=== PATIENT | male | born 1945 | race Caucasian/White ===

== ENCOUNTER 2019-03-05 16:16 | Inpatient (IN) ==
[2019-03-05] MEDS ORDERED: Ondansetron 4 MG/2 ML VIAL IVP PRN (17:19)
[2019-03-05] MEDS ORDERED: Naloxone 0.4 MG/ML INJ IVP PRN (17:19)
[2019-03-05 19:49] LABS: BUN/Creatinine Ratio 13 (6-26); Blood Urea Nitrogen 10 mg/dL (8-23); Carbon Dioxide 24 mEq/L (23-29); Chloride 104 mEq/L (98-107); Glucose 109 mg/dL (70-105); Osmolality,Calculated 280 (280-300); Potassium 3.7 mEq/L (3.5-5.1); Sodium 135 mEq/L (136-145); eGFR For African Americans > 60 (> 60); eGFR For Non-African Americans > 60 (> 60)
[2019-03-05] MEDS: Piperacillin/Tazobactam 3.375 GM in 0.9 % Sodium Chloride Mini Bag 100 ML IVPB SCH (19:56)
[2019-03-05] MEDS: *HR* HYDROcodone/Acet 5/325 mg TABLET PO PRN (23:39)
[2019-03-06] MEDS: Piperacillin/Tazobactam 3.375 GM in 0.9 % Sodium Chloride Mini Bag 100 ML IVPB SCH ×3 (01:04→17:00)
[2019-03-06] MEDS ORDERED: Vancomycin 1,750 MG in 0.9 % Sodium Chloride 250 ML IVPB SCH (05:00)
[2019-03-06 05:01] LABS: Hematocrit 39.9 % (37.5-50.1); Hemoglobin 13.4 g/dL (12.9-16.9); Mean Corpuscular HGB Conc 33.6 g/dL (31.6-35.5); Mean Corpuscular Hemoglobin 32.1 pg (28.0-33.3); Mean Corpuscular Volume 95.7 fL (83.0-100.0); Mean Platelet Volume 9.6 fL (9.4-12.4); Platelet Count 238 K/mcL (140-400); Red Blood Count 4.17 M/mcL (4.19-5.50); Red Cell Distribution Width 13.5 % (11.5-14.5); White Blood Count 7.4 K/mcL (4.3-11.1)
[2019-03-06 05:20] LABS: BUN/Creatinine Ratio 12 (6-26); Blood Urea Nitrogen 12 mg/dL (8-23); Calcium 8.4 mg/dL (8.6-10.3); Carbon Dioxide 24 mEq/L (23-29); Chloride 101 mEq/L (98-107); Glucose 111 mg/dL (70-105); Magnesium 1.9 mg/dL (1.6-2.6); Osmolality,Calculated 284 (280-300); Potassium 3.5 mEq/L (3.5-5.1); Sodium 137 mEq/L (136-145); eGFR For African Americans > 60 (> 60); eGFR For Non-African Americans > 60 (> 60)
[2019-03-06] MEDS: Acetaminophen 325 MG TABLET PO PRN ×3 (05:24→17:00)
[2019-03-07] MEDS: Piperacillin/Tazobactam 3.375 GM in 0.9 % Sodium Chloride Mini Bag 100 ML IVPB SCH ×4 (00:23→23:31)
[2019-03-07] MEDS: *HR* HYDROcodone/Acet 5/325 mg TABLET PO PRN (00:32)
[2019-03-07 03:57] LABS: Uric Acid 6.6 mg/dL (2.3-7.6)
[2019-03-07 03:58] LABS: BUN/Creatinine Ratio 13 (6-26); Blood Urea Nitrogen 11 mg/dL (8-23); Calcium 8.7 mg/dL (8.6-10.3); Carbon Dioxide 23 mEq/L (23-29); Chloride 103 mEq/L (98-107); Glucose 115 mg/dL (70-105); Osmolality,Calculated 286 (280-300); Potassium 3.7 mEq/L (3.5-5.1); Sodium 138 mEq/L (136-145); eGFR For African Americans > 60 (> 60); eGFR For Non-African Americans > 60 (> 60)
[2019-03-07] MEDS ORDERED: Simethicone 80 MG TAB.CHEW PO PRN (07:40)
[2019-03-07] MEDS: Aspirin Enteric Coated 81 MG Tablet PO SCH (10:00)
[2019-03-07] MEDS: Acetaminophen 325 MG TABLET PO PRN (20:27)
[2019-03-08] MEDS: Acetaminophen 325 MG TABLET PO PRN (03:42)
[2019-03-08] MEDS: Aspirin Enteric Coated 81 MG Tablet PO SCH (08:54)
[2019-03-08] MEDS: Piperacillin/Tazobactam 3.375 GM in 0.9 % Sodium Chloride Mini Bag 100 ML IVPB SCH (08:54)
[2019-03-08 09:42] LABS: BUN/Creatinine Ratio 14 (6-26); Blood Urea Nitrogen 11 mg/dL (8-23); Calcium 8.7 mg/dL (8.6-10.3); Carbon Dioxide 24 mEq/L (23-29); Chloride 105 mEq/L (98-107); Glucose 114 mg/dL (70-105); Osmolality,Calculated 286 (280-300); Potassium 3.7 mEq/L (3.5-5.1); Sodium 138 mEq/L (136-145); eGFR For African Americans > 60 (> 60); eGFR For Non-African Americans > 60 (> 60)
[2019-03-08] MEDS ORDERED: Aminoglycoside Consult 1 EACH MC ONE (11:07)
[2019-03-08] MEDS: cephALEXin 500 MG CAPSULE PO SCH ×3 (12:49→20:29)
[2019-03-08] MEDS: Sulfamethoxazole/Trimeth DS 1 EACH TABLET PO SCH (20:29)
[2019-03-09 07:04] VITALS: BP 144/74
[2019-03-09] MEDS: cephALEXin 500 MG CAPSULE PO SCH (08:10)
[2019-03-09] MEDS: Aspirin Enteric Coated 81 MG Tablet PO SCH (08:11)
[2019-03-09] MEDS: Sulfamethoxazole/Trimeth DS 1 EACH TABLET PO SCH (08:11)
[2019-03-09] MEDS ORDERED: FLU Vac QV 19-20 (6Month+)/PF 0.5 ML SYRINGE IM ONE (10:20)
== END 2019-03-09 11:08 | disposition home or self-care (01) | DRG 558 ==
LOC: EMEROOARM 16:16 → SUATTDRO 18:11 → 3ANU 18:11
PROVIDERS: ADMIT Internal Medicine; ATTEND Internal Medicine